=== PATIENT | male | born 1955 | race Caucasian/White ===

== ENCOUNTER 2024-09-28 17:19 | Inpatient (IN) | payer BC, MEDICARE, SELFPAY ==
[2024-09-28 11:30] VITALS: BP 170/109
[2024-09-28 12:02] LABS: % Basophils 0.6 % (0-2); % Eosinophils 0.4 % (0-6); % Immature Granulocytes 0.1 % (0-0.5); % Lymphocytes 21.7 % (20.5-51.1); % Monocytes 10.7 % (1.7-9.3); % Neutrophils 66.5 % (42.2-75.2); Absolute Lymphocytes 1.6 10^3/uL (1.2-3.4); Absolute Monocytes 0.8 10^3/uL (0.1-0.6); Absolute Neutrophils 4.8 10^3/uL (1.4-6.5); Hematocrit 40.5 % (39.0-52.0); Hemoglobin 14.1 g/dL (13.0-18.0); Mean Corp Hgb Conc. 34.8 g/dL (33.0-37.0); Mean Corpuscular Hgb 29.1 pg (27.0-31.0); Mean Corpuscular Volume 83.7 fL (80.0-94.0); Nucleated Red Blood Cells % 0 % (-); Platelet Count 211 10^3/uL (130-400); Red Blood Cell Count 4.84 10^6/uL (4.70-6.10); Red Cell Dist. Width 12.5 % (11.5-14.5); White Blood Cell Count 7.2 10^3/uL (4.8-10.8)
[2024-09-28 12:09] LABS: ALT (SGPT) 23 U/L (0-50); AST (SGOT) 23 U/L (17-59); Albumin 4.5 g/dl (3.5-5.0); Alkaline Phosphatase 71 U/L (38-126); Blood Urea Nitrogen 12 mg/dl (9-20); Calcium 9.1 mg/dl (8.4-10.2); Carbon Dioxide 29 mmol/L (22-30); Chloride 100 mmol/L (98-107); Glucose 161 mg/dl (70-99); Potassium 4.6 mmol/L (3.5-5.1); Sodium 135 mmol/L (135-145); Total Bilirubin 1.2 mg/dl (0.2-1.3); Total Protein 7.2 g/dl (6.3-8.2); eGFR > 60.00
[2024-09-28 14:07] VITALS: BMI 23.1
[2024-09-28] MEDS: MORPHINE SULFATE 4 MG IV (14:35)
[2024-09-28] MEDS: ZOFRAN 4 MG IV (14:42)
--- NOTE | 2024-09-28 14:53 | ED.GENMED ---
History of Present Illness
General
Chief Complaint: Abdominal Symptoms
Source: patient
Time Seen by Provider: 09/28/24 14:11
History of Present Illness
History of Present Illness:
68-year-old male with past medical history of nyg-kxlogso-jtwrfycyp diabetes and a longstanding right inguinal hernia who states that yesterday he got sudden onset pain to the right groin where his hernia had previously been in place, unable to
reduce the hernia and has had continued pain today. Patient states that he has felt slightly constipated since yesterday as well and notes that he does have a discomfort when urinating. Denies any vomiting. No history of similar and denies any
trauma to the affected area.
Past History
Past History
ED Past Medical History: CVA (), NIDDM and Psychiatric (depression)
ED Past Surgical History: Cholecystectomy and Orthopedic
Social History
Tobacco: Non-smoker
Alcohol: None
Drug: None
Personal:
Living: with family
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
Review of Systems
Review of Systems
All Other Systems: ROS reviewed and negative except as documented in HPI and ROS
Phy Exam
Physical Exam
Physical Exam:
GENERAL: Alert , in no apparent distress
EYE: clear conjunctiva b/l
HEAD: NCAT
ENT: o/p clr, mmm.
ABDOMEN: Soft, no abdominal tenderness, normoactive bowel sounds
GENITOURINARY: Large right inguinal hernia is firm, nonreducible and exquisitely tender to palpation. No overlying skin changes. No scrotal edema or tenderness, no testicular edema or tenderness, no urethral discharge
NEUROLOGICAL: Alert and oriented
SKIN: Warm and dry, skin intact.
MUSCULOSKELETAL: No edema, well perfused.
PSYCH: Normal and appropriate interaction.
Scores
Heart Failure Risk
Heart Failure Risk Score: Not Applicable
Heart Score for Chest Pain Patients
STEMI patient?: Not applicable
Withdrawal Assessment of Alcohol
Withdrawal Assessment Completed?: Not applicable
Course
Orders/Labs/Results
Orders:
Orders
09/28/24 11:36
CMP [Comprehensive Metabolic Panel] Urgent
Complete Blood Count/With Diff Urgent
09/28/24 14:21
Morphine Sulfate 4 mg IV NOW STA
09/28/24 14:25
CT Abd/pelvis W Iv Cont Urgent
Comment:
Reason For Exam: right inguinal pain,concern for incarcerate hernia
09/28/24 14:39
Ondansetron Injectable [Zofran] 4 mg IV NOW STA
09/28/24 14:42
Lactic Acid Q4H
Comment: CANCEL 2nd LACTIC ACID IF 1st LACTIC ACID IS LESS THAN 2
09/28/24 18:30
Lactic Acid Q4H
Comment: CANCEL 2nd LACTIC ACID IF 1st LACTIC ACID IS LESS THAN 2
Abnormal Lab Results
09/28/24
11:36
Absolute Monos (auto) 0.8 H 10^3/uL
(0.1-0.6)
Monocytes % 10.7 H %
(1.7-9.3)
Glucose 161 H mg/dl
(70-99)
09/28/24 11:36
09/28/24 11:36
Vital Signs
Initial and Last Documented VS:
Initial Vital Signs
Temp Pulse Resp BP Pulse Ox
98.0 F 93 18 170/109 100
09/28/24 11:30 09/28/24 11:30 09/28/24 11:30 09/28/24 11:30 09/28/24 11:30
Last Documented Vital Signs
Temp Pulse Resp BP Pulse Ox
98.0 F 93 18 170/109 100
09/28/24 11:30 09/28/24 11:30 09/28/24 11:30 09/28/24 11:30 09/28/24 11:30
MDM/Problems Addressed
Differential Diagnosis Includes:
Incarcerated or strangulated right inguinal hernia, at this time no concern for orchitis or epididymitis, urinary tract infection
MDM/Problems Addressed:
68-year-old male presenting to the emergency department for evaluation of sudden onset pain to a known right inguinal hernia that he states has been present for at least 5 years. Unable to reduce the hernia. Exam does reveal a significantly tender
and firm right inguinal hernia. Labs have been initiated in triage. Will add on lactic acid for further evaluation. Morphine for pain control. I discussed the case with general surgery on-call who is also requesting a CT scan of the abdomen and
pelvis be ordered.
*Radiology
Radiology exam reviewed: radiology read reviewed
*Pulse Oximetry
Patient hypoxic: no
*Critical Care Note
Total Time (30-74mins, 75-104mins- exclusive of procedures): Not Applicable
Patient Management
Discussion with other providers: Mdm Developer
Escalation/DeEscalation of care consider admission/obs:
Patient CT scan shows the following:
Moderate-sized RIGHT inguinal hernia which contains the cecum, ileocecal valve, and terminal ileum. Mild inflammatory changes within the hernia sac with multiple distal ileal loops appearing fluid-filled and mildly distended. Findings suspicious for
possible developing small bowel obstruction secondary to incarcerated hernia.
I notified surgery again about these findings. They will evaluate the CT and come to the ER to see the patient for disposition and treatment planning. Patient was updated on these findings. Notes he has had significant pain relief following the
morphine and Zofran.
General surgery requesting admit to hospitalist service. They will see in consult. Hospitalist team accepts
ED Attending Note
-
Portions of this chart may have been created with voice recognition software.� Occasional wrong word or��sound alike� substitutions may have occurred due to the inherent limitations of voice recognition software.
Discharge Plan
Departure
Patient Disposition: Admit
Date of Disposition: 09/28/24
Time of Disposition: 16:54
Presentation/result/management discussed w/ accepting MD/DO: Hospitalist
Discharge Problem:
Hernia, inguinal, right, Small bowel obstruction
Prescriptions:
No Action
venlafaxine 150 mg Capsule,Extended Release 24hr
150 mg PO DAILY
finasteride 5 mg Tablet
5 mg PO HS
Farxiga 10 mg Tablet
10 mg PO DAILY
atorvastatin 10 mg Tablet
10 mg PO HS
latanoprost 0.005 % Drops
1 drp OPHTHALMIC (EYE) QPM
Ozempic 0.25 mg or 0.5 mg (2 mg/3 mL) Pen Injector
0.25 mg SC QWEEK
Rx Instructions:
for 4 weeks
cyanocobalamin (vitamin B-12) 1,000 mcg Tablet
1,000 mcg PO DAILY Qty: 30 0RF
clopidogrel 75 mg Tablet
75 mg PO DAILY 28 Days Qty: 28 0RF
aspirin [Children's Aspirin] 81 mg Tablet,Chewable
81 mg PO DAILY 30 Days Qty: 30 0RF
timolol maleate 0.5 % Drops
1 drp OPHTHALMIC (EYE) BID
Rx Instructions:
both eyes
losartan 50 mg Tablet
50 mg PO DAILY 30 Days Qty: 30 0RF
metoprolol tartrate 25 mg Tablet
25 mg PO BID 30 Days Qty: 60 0RF
Referrals:
Bladimir Rodriguez MD [Family Provider] -
Interventions
Interventions:
*Risk Screen - Suicide Last Done: 09/28/24 11:30
HF-Rwiqtr-Biaksfyqmh Assessment Last Done: 09/28/24 14:07
Discharge Date and Time
Print Language: DIVEHI
[2024-09-28 15:12] LABS: Lactic Acid 0.9 mmol/L (0.7-2.0)
[2024-09-28 15:55] VITALS: BP 162/95
[2024-09-28 16:00] VITALS: BP 160/97
--- NOTE | 2024-09-28 17:20 | HPS.HSE ---
Family Physician
-
Family Physician: Bladimir Rodriguez MD
Chief Complaint
-
sudden onset pain to the right groin where his hernia
History of Present Illness
67yo M with PMH DM2, HLD, BPH, Depression, recent admission for acute ischemic Rt hemisphere subcortical CVA due to small vessel ischemic disease, longstanding right inguinal hernia seen at ER;
- sudden onset pain to the right groin where his hernia had previously been in place
- unable to reduce the hernia and has had continued pain today.
- slightly constipated since yesterday as well and notes that he does have a discomfort when urinating.
- no history of similar and denies any trauma to the affected area.
ROS
Denies any vomiting.
Medical History
Past Medical History
Past Medical History: Reports Other
Additional Past Medical History:
Depression, HLD, Diabetes Meillitus
Past Surgical History: Reports Other (Cholecystectomy, Right ACL repair)
Social History
Tobacco: Non-smoker
Alcohol: None
Drug: None
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
Family History
Family History: Other (Father with DM. Denies FHx of Stroke or seizures or CAD.)
Allergies / Home Medications
Allergies reflects when Allergies were last updated in [employer].
Home Medications with original date entered in [employer]
Allergy/Medication List:
Allergies
Allergy/AdvReac Type Severity Reaction Status Date / Time
No Known Allergies Allergy Verified 09/11/23 13:31
Home Medications
atorvastatin 10 mg tablet 10 mg PO HS 09/11/23
dapagliflozin propanediol 10 mg tablet (Farxiga) 10 mg PO DAILY 09/11/23
finasteride 5 mg tablet 5 mg PO HS 09/11/23
latanoprost 0.005 % eye drops 1 drp ophthalmic (eye) QPM 09/11/23
semaglutide 0.25 mg or 0.5 mg (2 mg/3 mL) subcutaneous pen injector (Ozempic) 0.25 mg SC QWEEK 09/11/23
timolol maleate (PF) 09/11/23
venlafaxine 150 mg capsule,extended release 24 hr 150 mg PO DAILY 09/11/23
Review of Systems
-
Constitutional: Reports No Symptoms
EENT: Reports No Symptoms
Respiratory: Reports No Symptoms
Cardiac: Reports No Symptoms
Abdomen/GI: Reports See HPI
: Reports No Symptoms
Musculoskeletal: Reports No Symptoms
Skin: Reports No Symptoms
Neurological: Reports No Symptoms
Endocrine: Reports No Symptoms
Hematologic/Lymphatic: Reports No Symptoms
Psych: Reports No Symptoms
Physical Exam
Vital Signs
Vital Signs
Temp Pulse Resp BP Pulse Ox
98.0 F 93 18 160/97 98
09/28/24 11:30 09/28/24 11:30 09/28/24 11:30 09/28/24 16:00 09/28/24 16:45
Physical Exam
General: Well Developed, Well Nourished and No Apparent Distress
HEENT: NormoCephalic, Moist mucous membranes and Atraumatic
Respiratory: Clear
Cardiac: S1/S2 and Regular Rhythm; No Murmur or Rub
GI: Soft, Non Tender, Non Distended, Normal Bowel Sounds and Other (Large right inguinal hernia is firm, nonreducible and exquisitely tender to palpation. No overlying skin changes. No scrotal edema or tenderness, no testicular edema or
tenderness, no urethral discharge); No Organomegaly or No Hernias
Rectal: Deferred by Provider
Musculoskeletal: No Clubbing, No Cyanosis and No Edema
Skin: No Rash
Neuro: Nonfocal/grossly intact
Laboratory Results
-
09/28/24 11:36
09/28/24 11:36
Laboratory Results
Lactic Acid 0.9 mmol/L (0.7-2.0) 09/28/24 14:42
Total Bilirubin 1.2 mg/dl (0.2-1.3) 09/28/24 11:36
AST 23 U/L (17-59) 09/28/24 11:36
ALT 23 U/L (0-50) 09/28/24 11:36
Alkaline Phosphatase 71 U/L (38-126) 09/28/24 11:36
Data Reviewed
-
CT Scan: Report Reviewed by me
Lab Data: Labs Reviewed by me
Old Records: Reviewed
Impression/Plan
-
Laboratory Tests
09/28/24 09/28/24
11:36 14:42
Hgb 14.1
Plt Count 211
Creatinine 0.7
eGFR > 60.00
Glucose 161 H
Lactic Acid 0.9
09/28/24 CT Abd/pelvis W Iv Cont
- Moderate-sized RIGHT inguinal hernia which contains the cecum, ileocecal valve, and terminal ileum.
- Mild inflammatory changes within the hernia sac with multiple distal ileal loops appearing fluid-filled and mildly distended.
- Findings suspicious for possible developing small bowel obstruction secondary to incarcerated hernia.
Last hospitalist admission: Date of Admission: 09/12/23 - Date of Discharge: 09/13/23
DC DX:
Acute ischemic stroke subcortical region of the right hemisphere secondary to small vessel ischemic disease or atherosclerotic disease given uncontrolled diabetes and also undiagnosed hypertension
Acute small hemorrhagic infarct in R putamen
Primary Hypertension
Hyponatremia
Diabetes mellitus uncontrolled
ASSESSMENT & PLAN
Pending Rx reconciliation
Possible evolving SBO due to incarcerated Rt. inguinal hernia
- currently denied N/V
- Miralax tonight and in the am
- NPO, PRN analgesia and IVF
- supine with head down position and ice pack per GS
- GS consulted
Benign HTN
- Hold Losartan 50mg and Metoprolol tartrate 25 mg BID due to NPO
Recent acute ischemic Rt hemisphere subcortical CVA due to small vessel ischemic disease
- Hold DAPL due to NPO
Hyperglycemia
HX DM2
- last A1C at 10.5
- c/w home Ozempic Q week
- Hold Farxiga due to NPO
- ISS low
HLD
- Hold atorvastatin due NPO
Depression
- Hold home venlafaxine due to NPO
BPH
- Hold home finasteride.
DVT Px: SCD
Full code
IP MS
[2024-09-28 18:58] VITALS: BP 135/80; BMI 22.4
[2024-09-28] MEDS: MIRALAX 17 GRAMS PO (21:52)
[2024-09-28 23:00] VITALS: BP 151/92
[2024-09-29 00:15] LABS: Glucose - Point of Care 120 mg/dl (70-99)
[2024-09-29] MEDS: NOVOLOG FLEXPEN-LOW RESISTANCE SC ×2 (00:58→06:03)
[2024-09-29 06:02] LABS: Glucose - Point of Care 132 mg/dl (70-99)
--- NOTE | 2024-09-29 07:13 | W.PN.HOSP.TC ---
Today's Communication/Plan
-
discharge
Assessment / Plan
Assessment / Plan
Physical Exam
General: No acute distress appears comfortable at this time
HEENT: NormoCephalic, Moist mucous membranes and Atraumatic
Respiratory: Clear
Cardiac: S1/S2 and Regular Rhythm; No Murmur or Rub
GI: Soft, Non Tender, Non Distended, Normal Bowel Sounds
Musculoskeletal: No Clubbing, No Cyanosis and No Edema
Skin: No Rash
Neuro: AOx3
67M with PMH DM2, HLD, BPH, Depression, CVA 2022, longstanding right inguinal hernia p/w sudden onset pain to the right groin inguinal hernia. CT concerning for developing SBP 2/2 incarcerated Hernia.
Possible evolving SBO due to incarcerated Rt. inguinal hernia
GS consult appreciated
-hernia reduced
-Advised to avoid straining, use miralax as needed.
-Advised to f/u GS outpt to discuss repair.
-Tolerated diet ok to dc home
Benign HTN
- resumed home Losartan
Hyperglycemia
HX DM2
- updated A1c 6.7 sugars well controlled, discontinue routine FS unnecessary at this time.
HLD
- resume home atorvastatin
Depression
- resume home venlafaxine.
DVT Px: SCD
Full code
IP MS
Medically stable for discharge home with outpatient follow up recommendations.
Total Time Preparing Discharge ___40____ minutes including examination of the patient, summary of the hospital stay, instructions for continuing care to all relevant caregivers; and preparation of discharge records, prescriptions, and referral
forms if necessary.
Anticipated Discharge: Today
Subjective/Interval History
-
Date of Service: September 29, 2024
No acute distress, reports feeling well following hernia reduction performed by surgeon. Tolerating diet. Eager to go home. Denies new acute issues at this time.
Objective Data
-
Vital Signs:
Vital Signs
Temp Pulse Resp BP Pulse Ox
99.7 F 95 18 151/92 98
09/28/24 23:00 09/28/24 23:00 09/28/24 23:00 09/28/24 23:00 09/28/24 23:00
I&O
09/28/24 09/29/24 09/30/24
06:59 06:59 06:59
Intake Total 0 / 0
Balance 0 / 0
[2024-09-29 08:01] VITALS: BP 149/87
[2024-09-29] MEDS: NSS 1000 IV (09:51)
--- NOTE | 2024-09-29 11:14 | CON.GS ---
Consultation
-
Requesting Provider: Scott
Performing Provider: Anusha
Reason for Consultation: right groin pain
Medical History
-
Chief Complaint: right groin pain
History of Present Illness:
67M with acute onset right groin pain after straining for several days with constipation. Denies f/c/n/v. Had the hernia many years, typically not painful. Recently has been more constipated and straining more. This am feels back to baseline.
Past Medical History
Past Medical History: Other (Depression, HLD, Diabetes Meillitus)
Past Surgical History: Cholecystectomy and Orthopedic
Social History
Tobacco: Non-Smoker
Alcohol: None
Drug: None
Employment: Employed
Family History
Family History: Reviewed & Noncontributory
Allergies / Home Medications
Allergy/AdvReac Type Severity Reaction Status Date / Time
No Known Allergies Allergy Verified 09/28/24 11:31
�Medication �Instructions �Recorded �Confirmed �Type
atorvastatin 10 mg tablet 20 mg PO HS High Cholesterol 09/11/23 09/29/24 History
latanoprost 0.005 % eye drops 1 drp ophthalmic (eye) QPM Eye 09/11/23 09/29/24 History
Condition
semaglutide 0.25 mg or 0.5 mg (2 2 mg SC QWEEK Diabetes 09/11/23 09/29/24 History
mg/3 mL) subcutaneous pen injector
(Ozempic)
venlafaxine 150 mg 150 mg PO DAILY Mental 09/11/23 09/29/24 History
capsule,extended release 24 hr Health/Anxiety
timolol maleate 0.5 % eye drops 1 drp ophthalmic (eye) BID Eye 09/12/23 09/29/24 History
Condition
losartan 50 mg tablet 50 mg PO DAILY 30 days #30 tabs 09/13/23 09/29/24 Rx
Review of Systems
-
A 10 point review of systems was completed, and was negative except as per HPI.
Physical Exam
Vital Signs
Temp Pulse Resp BP Pulse Ox
98.3 F 99 18 149/87 100
09/29/24 08:01 09/29/24 08:01 09/29/24 08:01 09/29/24 08:01 09/29/24 08:01
09/28/24 09/29/24 09/30/24
06:59 06:59 06:59
Actual Weight 66.877 kg
Body Mass Index (BMI) 22.4
Lab Results
09/28/24 11:36
09/28/24 11:36
WBC 7.2 10^3/uL (4.8-10.8) 09/28/24 11:36
Hgb 14.1 g/dL (13.0-18.0) 09/28/24 11:36
Hct 40.5 % (39.0-52.0) 09/28/24 11:36
Plt Count 211 10^3/uL (130-400) 09/28/24 11:36
Abs Immat Gran (auto) 0.0 10^3/uL (0-0.05) 09/28/24 11:36
Neutrophils % 66.5 % (42.2-75.2) 09/28/24 11:36
Physical Exam
General: Well Developed, Well Nourished and No Apparent Distress
GI: Soft and Non Tender
Genito-urinary: Inguinal Hernia (right inguinal hernia reduced, mild ttp to the area remains)
Skin: Warm and Dry
Neuro: AO x 3
Psych: Calm
Data Reviewed
-
CT Scan: Image Personally Visualized and interpreted, Report Reviewed by me, Discussed with Physician and Discussed with Patient
Labs: Labs Reviewed by me and Discussed with Patient
Assessment / Plan
-
68M with painful right inguinal hernia containing bowel, recent constipation
Clinically normal this am, hernia reduced.
Advised to avoid straining, use miralax as needed.
Advised to f/u in my office to discuss repair.
OK for DC home when cole diet
[2024-09-29] MEDS: EFFEXOR XR 150 MG PO (12:02)
[2024-09-29] MEDS: TIMOPTIC 0.5% OPHTHALMIC SOLUTION 1 DROP OPHTH (12:02)
[2024-09-29] MEDS: COZAAR 50 MG PO (12:03)
[2024-09-29 13:07] LABS: Glucose - Point of Care 163 mg/dl (70-99)
[2024-09-29 13:32] LABS: Glycohemoglobin (HgbA1c) 6.7 % (4.0-5.6)
[2024-09-29] MEDS: NOVOLOG FLEXPEN-LOW RESISTANCE 1 UNITS SC (13:41)
--- NOTE | 2024-09-29 13:44 | PTCARENOTE ---
Pt tolerating regular diet without nausea/vomiting. Pt reports that he still has tenderness of low middle abdomen with palpation but no pain at rest, will continue to monitor.
--- NOTE | 2024-09-29 15:30 | W.DCSUMMARY ---
Discharge Summary
Discharge Data
Date of Admission: 09/28/24
Date of Discharge: 09/29/24
-
Pending Results: No
Discharge Plan
-
Patient Disposition: Home (Routine Discharge)
Discharge Diagnosis/Procedures: Incarcerated Right Inguinal Hernia successfully manually reduced
Condition: Fair
Diet: Regular
Activity: As tolerated
Driving Restrictions: As prior to admission
Bathing Restrictions: None
Activity Restrictions/Additional Instructions:
Follow up with Surgeon in <1 week of discharge and primary care provider in 1 week of discharge.
Referrals:
Bladimir Rodriguez MD [Family Provider] - in one week
Jaime Tavares MD [Active] - in less than 1 week (as soon as possible to discuss hernia repair)
Prescriptions:
Continued
venlafaxine 150 mg Capsule,Extended Release 24hr
150 mg PO DAILY
atorvastatin 10 mg Tablet
20 mg PO HS
latanoprost 0.005 % Drops
1 drp OPHTHALMIC (EYE) QPM
Ozempic 0.25 mg or 0.5 mg (2 mg/3 mL) Pen Injector
2 mg SC QWEEK
Rx Instructions:
for 4 weeks
timolol maleate 0.5 % Drops
1 drp OPHTHALMIC (EYE) BID
Rx Instructions:
both eyes
losartan 50 mg Tablet
50 mg PO DAILY 30 Days Qty: 30 0RF
Discharge Orders:
Discharge Patient (As Directed); Ordered 09/29/24
Ordered By: Primo Guzman
Discharge Date and Time
Print Language: SLOVENIAN
--- NOTE | 2024-09-29 15:50 | CM ---
Initial assessment completed
Pharmacy verified: [facility] @ [address]
Lives on the 1st floor of a multilevel home; 3 steps to enter; bath has stall shower
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
NO DME
Will transport himself home
NO SNF or Home Health utilization history
Plan: discharge to home today; no needs
[2024-09-29 16:32] VITALS: BP 172/90
[2024-09-29 16:44] VITALS: BP 166/85
--- NOTE | 2024-09-29 16:50 | PTCARENOTE ---
Pt's BP 172/90 prior to discharge, on recheck 166/85, HR 99. Pt asymptomatic. Pt does not know what his baseline BP is. Made Dr. Guzman aware of elevated BP. Dr. Guzman is ok for pt to be discharged.
== END 2024-09-29 17:56 | disposition home or self-care (01) | DRG 395 ==
LOC: 4 EAST ACU 17:19
PROVIDERS: Emergency Medicine; Physician Assistant Medical; Registered Nurse; ADMITTING PHYSICIAN Internal Medicine; ATTENDING PHYSICIAN Internal Medicine; CONSULT PHYSICIAN Surgery; EMERGENCY PHYSICIAN Emergency Medicine; FAMILY PHYSICIAN Family Medicine
DX: K40.30 Unilateral inguinal hernia, with obstruction, without gangrene, not specified as recurrent (principal); Z79.85 Long-term (current) use of injectable non-insulin antidiabetic drugs; E11.65 Type 2 diabetes mellitus with hyperglycemia; E78.00 Pure hypercholesterolemia, unspecified; I10 Essential (primary) hypertension; F32.A Depression, unspecified; N40.0 Benign prostatic hyperplasia without lower urinary tract symptoms; Z86.73 Personal history of transient ischemic attack (TIA), and cerebral infarction without residual deficits; Z83.3 Family history of diabetes mellitus; Z79.899 Other long term (current) drug therapy; F41.9 Anxiety disorder, unspecified
CPT/HCPCS: 74177; 80053; 82962; 83036; 83605; 85025; 96374; 96375; 99285; Q9967

== ENCOUNTER 2024-11-08 06:31 | Day surgery (SDC) | payer BC, SELFPAY ==
[2024-10-28 14:16] VITALS: BMI 21.0
[2024-11-08] VITALS (9 sets, daily range): BP systolic 151–174; BP diastolic 32–106; BMI 21.0
[2024-11-08] MEDS: TYLENOL 1000 MG PO (08:42)
[2024-11-08] MEDS: NORMOSOL-R/PLASMALYTE-A 1000 IV (08:50)
[2024-11-08 08:52] LABS: Glucose - Point of Care 164 mg/dl (70-99)
--- NOTE | 2024-11-08 11:54 | W.IMMPOSTOP ---
Surgical Immed Post Op Note
-
Primary Surgeon: Anusha
Assisting: Catherine MIRANDA
Pre-op Diagnosis: Bilateral inguinal hernias
Post-op Diagnosis: Same
Procedure Performed: Robot assisted laparoscopic repair of bilateral inguinal hernias
Anesthesia Type: GETA
Specimen / Cultures: None
Estimated Blood Loss: 15cc
Complications: None immediate
Operative Findings: Large defect on the right with medial and lateral components but all lateral to the inferior epigastrics. A small window was created medial to the epigastrics and the pseudosac was everted and pulled through this window and
secured to Shravan's ligament with 2-0 vicryl suture. Indirect defect on the left with a large deep sac and moderate cord lipoma. B/L XL MID 3D max
--- NOTE | 2024-11-08 11:57 | OR.RPT ---
Operative Report
Operative Report
Primary Surgeon: Anusha
Assisting: Catherine MIRANDA
Pre-op Diagnosis: Bilateral inguinal hernias
Post-op Diagnosis: Same
Procedure Performed: Robot assisted laparoscopic repair of bilateral inguinal hernias
Anesthesia Type: GETA
Specimen / Cultures: None
Estimated Blood Loss: 15cc
Complications: None immediate
Operative Findings: Large defect on the right with medial and lateral components but all lateral to the inferior epigastrics. A small window was created medial to the epigastrics and the pseudosac was everted and pulled through this window and
secured to Shravan's ligament with 2-0 vicryl suture. Indirect defect on the left with a large deep sac and moderate cord lipoma. B/L XL MID 3D max
Date of surgery: 11/08/24
Indications:� This 69M developed a symptomatic right inguinal hernia. He was hospitalized for incarceration but the hernia spontaneously reduced before my encounter with him. Since that encounter he has developed syptoms on the left groin as well
and imaging is notable for bilateral inguinal hernias. Robot assisted laparoscopic repair of bilateral inguinal hernias was planned.
Description of procedure:� The patient was taken to the operating room and positioned into supine position. The patient�s abdomen was prepped and draped in standard sterile fashion. A time-out was completed verifying correct patient, procedure,
site, positioning, and implants and special equipment prior to beginning this procedure.
The groin hernia was manually reduced. A stab incision was made in the left upper quadrant, a Veress needle was inserted and proper position was confirmed by aspiration and saline drop test. Following this, pneumoperitoneum was created with
insufflation of carbon dioxide to 12 mmHg. Then a 8mm robotic trocar was inserted above and to the left of the umbilicus. A laparoscope was inserted and the area of initial trocar entry and Veress needle placement were both inspected and no injuries
were found. Two 8mm trocars were then placed lateral to the rectus sheath under direct visualization.
Both inguinal regions were inspected and the median umbilical ligament, medial umbilical ligament, and lateral umbilical fold were identified. Attention was turned to the right groin. The peritoneum was incised transversely above the defect and a
flap was developed in the caudad direction. Shravan�s ligament was identified ultimately dissected to its junction with the iliac vein and the space of Retzius was developed bluntly.� The dissection was continued inferiorly to the iliopubic tract,
with care taken to avoid injury to the femoral branch of the genitofemoral nerve and the lateral femoral cutaneous nerve. The cord structures were parietalized.
The direct space was inspected and a hernia defect was identified and reduced by gentle traction. The pseudosac was everted and secured to Shravan's ligament with 2-0 vicryl suture. The femoral space was inspected no defect was identified.� The
indirect space was inspected and no hernia was identified. The canal was inspected and a moderate cord lipoma was identified and reduced by gentle traction.
Attention was turned to the left groin and the above process was repeated. A large deep indirect defect was totally reduced along with a moderate cord lipoma.
Extra large left and right MID 3D max mesh was passed through a trocar. The mesh was placed into the preperitoneal space and moved into position to lay flat and completely cover the direct, indirect, and femoral spaces with overlap at the midline.
The mesh was secured into place using 2-0 vicryl suture to Shravan�s ligament medially and laterally. Care was taken to avoid the inferolateral triangles containing the iliac vessels and genital nerves. The peritoneal flap was closed over the mesh
and secured with 2-0 monocryl stratafix suture in similar positions of safety. A 14g angiocath was used to decompress the preperitoneal space revealing good seal and all mesh in good position without folding or curling.
After ensuring adequate hemostasis, the trocars were removed and the pneumoperitoneum allowed to escape. The trocar incisions were closed at the skin level using 4-0 monocryl and topical skin adhesive. All counts were correct and the patient
tolerated the procedure well and was taken to the postanesthesia care unit in stable condition.
The assistance of Catherine MIRANDA was required due to the complexity of the procedure. During the procedure she assisted with retraction, resection, and closure of the wound.
[2024-11-08 12:11] LABS: Glucose - Point of Care 183 mg/dl (70-99)
== END 2024-11-08 14:00 | disposition home or self-care (01) ==
LOC: SDS 06:31
PROVIDERS: ATTENDING PHYSICIAN Surgery; FAMILY PHYSICIAN Family Medicine
DX: K40.20 Bilateral inguinal hernia, without obstruction or gangrene, not specified as recurrent (principal)
CPT/HCPCS: 49650; 36415; 82962; 93005; C1781